=== PATIENT | female | born 1955 | race Caucasian/White ===

== ENCOUNTER 2016-08-09 11:36 | Inpatient (IN) | payer MEDICARE, MEDICAID ==
[~2016-08-09 11:36] MED LIST: ADVAIR INHALER; ALBUTEROL SULF8.5 G1 IH; ALENDRONATE SOD70 MG PO; ALLOPURINOL300 MG PO; AMITRIPTYLINE H25 M1 PO; ASPIRIN EC81 MG PO; CALCIUM + D T1 UDTAB PO; COLCRYS0.6 M1 PO; DEMADEX20 M1 PO; ENDOCET 7.5/3251 TAB PO; FLEXERIL10 MG PO; FUROSEMIDE40 MG PO; HYDRALAZINE HCL25 M1 PO; HYDROCODON-ACE1 EACH PO; IMURAN50 M1 PO; KLOR-CON 88 ME1 PO; LASIX40 MG PO; LOVENOX30 MG/0.3 SQ; MULTI VITAMIN1 EAC2 PO; MULTIVITAMIN1 TAB PO; OXYCODONE-APAP1 TAB PO; PEPCID40 M1 PO; PERCOCET 5-3251 EACH PO; POLYETHYLENE GL17 GM PO; PREDNISONE5 M1 PO; PROAIR HFA8.5 GM INH; PROMETHAZINE25 MG PO; TOPROL XL25 M1 PO; TRAMADOL HCL50 M1 PO; VITAMIN D50000 UNIT PO; ZYLOPRIM100 M1 PO
[2016-08-09] MEDS ORDERED: TYLENOL325 M2 PO (12:12)
[2016-08-09] MEDS ORDERED: VITAMIN C500 M3 PO (12:12)
[2016-08-09 12:20] LABS: HCT-HEMATOCRIT 26.5 % (34.0-49.0); HGB-HEMOGLOBIN 8.5 gm/dl (12.0-15.5); MCH (MEAN CORPUSCULAR HGB) 26.5 pg (28.0-32.0); MCHC MEAN CORPUSCULAR HGB CONC 32.1 % (32.0-36.0); MCV (MEAN CELL VOLUME) 82.6 fl (82.0-96.0); NEUTROPHIL-AUTOMATED 4.6 tho/cmm (1.6-8.0); RED BLOOD COUNT 3.21 mil/cmm (4.00-5.20); RED CELL DISTRIBUTION WIDTH 20.2 % (12.4-16.4); WHITE BLOOD COUNT 9.3 tho/cmm (4.0-10.0)
[2016-08-09 12:43] LABS: ALBUMIN 2.9 g/dl (3.5-5.0); ALKALINE PHOSPHATASE 75 U/L (33-138); ALT/SGPT <10 U/L (12-78); ANION GAP 15 mmol/L (0-20); AST/SGOT 16 U/L (10-40); BILIRUBIN,TOTAL 0.9 mg/dl (0-1.5); BLOOD UREA NITROGEN 36 mg/dl (6-24); CALCIUM 8.6 mg/dl (8.5-10.5); CARBON DIOXIDE-VENOUS 24 mmol/L (22-32); CHLORIDE 103 mmol/l (96-110); CREATININE 2.32 mg/dl (0.50-1.10); GLUCOSE 137 mg/dL (70-110); LIPASE 113 U/L (73-393); SODIUM 138 mmol/L (135-145); eGFR VALUE FOR BLACK 25 mL/Min
[2016-08-09 12:52] LABS: URINE BILIRUBIN NEGATIVE (NEG); URINE BLOOD NEGATIVE (NEG); URINE GLUCOSE (UA) NEGATIVE (NEG); URINE KETONE NEGATIVE (NEG); URINE LEUKOCYTE ESTERASE NEGATIVE (NEG); URINE NITRITE NEGATIVE (NEG); URINE PROTEIN NEGATIVE (NEG)
[2016-08-09 12:59] LABS: URINE APPEARANCE CLEAR; URINE COLOR YELLOW
[2016-08-09 13:46] LABS: BAND % 13 % (0-20); BAND ABSOLUTE COUNT 1.2 tho/cmm (0-2.0); BLAST ABSOLUTE COUNT 0.2 tho/cmm (0)
[2016-08-09 15:19] LABS: PLATELET COUNT 42 tho/cmm (150-450)
[2016-08-09 15:21] LABS: BLAST % 2 % (0)
[2016-08-09 20:06] LABS: INR 1.2 INR (0.9-1.1)
[2016-08-10 05:08] LABS: BASO % 0.4 % (0-2); EOS % 0.5 % (0-7); HCT-HEMATOCRIT 24.4 % (34.0-49.0); HGB-HEMOGLOBIN 7.9 gm/dl (12.0-15.5); IMMATURE GRANULOCYTES ABSOLUTE 0.64 tho/cmm (0-0.03); IMMATURE GRANULOCYTES PERCENT 7.6 % (0-0.3); LYMPH ABSOLUTE COUNT 1.4 tho/cmm (0.8-4.5); MCH (MEAN CORPUSCULAR HGB) 26.5 pg (28.0-32.0); MCHC MEAN CORPUSCULAR HGB CONC 32.4 % (32.0-36.0); MCV (MEAN CELL VOLUME) 81.9 fl (82.0-96.0); MONO % 32.9 % (0-12); MONOCYTE ABSOLUTE COUNT 2.8 tho/cmm (0.0-1.2); NEUTROPHIL ABSOLUTE COUNT 3.5 tho/cmm (1.6-8.0); NEUTROPHIL-AUTOMATED 3.5 tho/cmm (1.6-8.0); NEUTROPHILS % 41.6 % (40-80); RED BLOOD COUNT 2.98 mil/cmm (4.00-5.20); RED CELL DISTRIBUTION WIDTH 20.3 % (12.4-16.4); WHITE BLOOD COUNT 8.5 tho/cmm (4.0-10.0)
[2016-08-10 05:09] LABS: PLATELET COUNT 48 tho/cmm (150-450)
[2016-08-10 05:10] LABS: ANION GAP 11 mmol/L (0-20); BLOOD UREA NITROGEN 39 mg/dl (6-24); CALCIUM 8.3 mg/dl (8.5-10.5); CARBON DIOXIDE-VENOUS 27 mmol/L (22-32); CHLORIDE 101 mmol/l (96-110); GLUCOSE 88 mg/dL (70-110); POTASSIUM 3.9 mmol/L (3.7-5.1); SODIUM 135 mmol/L (135-145); eGFR VALUE FOR BLACK 26 mL/Min
--- NOTE | 2016-08-10 11:31 | NUR ---
VIRTUAL CARE NOTE: PT STATES DOING OK, NO NEEDS OR QUESTONS AT THIS TIME. CHART REVIEWED, ONCOLOGY TO SEE TODAY YET FOR CONSULT. WILL CON'T TO MONITOR.
[2016-08-11 05:32] LABS: ANION GAP 12 mmol/L (0-20); BLOOD UREA NITROGEN 38 mg/dl (6-24); CALCIUM 8.6 mg/dl (8.5-10.5); CARBON DIOXIDE-VENOUS 25 mmol/L (22-32); CHLORIDE 100 mmol/l (96-110); CREATININE 2.16 mg/dl (0.50-1.10); GLUCOSE 95 mg/dL (70-110); HCT-HEMATOCRIT 24.1 % (34.0-49.0); HGB-HEMOGLOBIN 7.9 gm/dl (12.0-15.5); MCH (MEAN CORPUSCULAR HGB) 26.4 pg (28.0-32.0); MCHC MEAN CORPUSCULAR HGB CONC 32.8 % (32.0-36.0); MCV (MEAN CELL VOLUME) 80.6 fl (82.0-96.0); NEUTROPHIL-AUTOMATED 4.7 tho/cmm (1.6-8.0); POTASSIUM 3.9 mmol/L (3.7-5.1); RED BLOOD COUNT 2.99 mil/cmm (4.00-5.20); RED CELL DISTRIBUTION WIDTH 20.3 % (12.4-16.4); SODIUM 133 mmol/L (135-145); WHITE BLOOD COUNT 9.6 tho/cmm (4.0-10.0); eGFR VALUE FOR BLACK 28 mL/Min
[2016-08-11 05:37] LABS: PLATELET COUNT 44 tho/cmm (150-450)
[2016-08-11 08:01] LABS: BAND % 10 % (0-20); EOSINOPHIL % 1 % (0-7)
[2016-08-11 08:02] LABS: BLAST % 2 % (0); BLAST ABSOLUTE COUNT 0.2 tho/cmm (0)
--- NOTE | 2016-08-11 17:17 | NUR ---
virtual care note: checked in on pt at this time. she is sitting up in bed. asks questions about her biopsy and would like her family to be able to call the nurses station to speak with staff about her plan of care. gave her the nurses' station phone number. pt is appropriate, converses appropriately. did also go over who each of her assigned physicians were and their role, to clear up any confusion. she was unsure of who all came to see her today. renal was consulted-she has a history of a renal transplant. will continue to monitor. electronic chart reviewed.
[2016-08-12 05:12] LABS: HGB-HEMOGLOBIN 7.3 gm/dl (12.0-15.5); MCH (MEAN CORPUSCULAR HGB) 26.1 pg (28.0-32.0); MCV (MEAN CELL VOLUME) 81.4 fl (82.0-96.0); NEUTROPHIL-AUTOMATED 2.7 tho/cmm (1.6-8.0); RED CELL DISTRIBUTION WIDTH 20.1 % (12.4-16.4); WHITE BLOOD COUNT 6.3 tho/cmm (4.0-10.0)
[2016-08-12 05:14] LABS: HCT-HEMATOCRIT 22.8 % (34.0-49.0); PLATELET COUNT 44 tho/cmm (150-450)
[2016-08-12 05:27] LABS: ANION GAP 13 mmol/L (0-20); BLOOD UREA NITROGEN 40 mg/dl (6-24); CALCIUM 8.5 mg/dl (8.5-10.5); CARBON DIOXIDE-VENOUS 26 mmol/L (22-32); CHLORIDE 104 mmol/l (96-110); GLUCOSE 93 mg/dL (70-110); POTASSIUM 4.1 mmol/L (3.7-5.1); SODIUM 139 mmol/L (135-145); eGFR VALUE FOR BLACK 32 mL/Min
[2016-08-12 08:07] LABS: BAND % 10 % (0-20); BAND ABSOLUTE COUNT 0.6 tho/cmm (0-2.0)
[2016-08-12 08:08] LABS: BLAST % 3 % (0); BLAST ABSOLUTE COUNT 0.2 tho/cmm (0)
[2016-08-12 08:09] LABS: WBC MORPHOLOGY TOXIC GRANULATION
--- NOTE | 2016-08-12 20:10 | NUR ---
VIRTUAL CARE NOTE: ASSESSMENT DEFFERRED. PT. SLEEPING.
[2016-08-13 07:52] LABS: ANION GAP 11 mmol/L (0-20); BLOOD UREA NITROGEN 32 mg/dl (6-24); CALCIUM 8.9 mg/dl (8.5-10.5); CARBON DIOXIDE-VENOUS 28 mmol/L (22-32); CHLORIDE 107 mmol/l (96-110); CREATININE 1.65 mg/dl (0.50-1.10); GLUCOSE 94 mg/dL (70-110); POTASSIUM 4.2 mmol/L (3.7-5.1); SODIUM 142 mmol/L (135-145); eGFR VALUE FOR BLACK 38 mL/Min
[2016-08-13 08:18] LABS: HGB-HEMOGLOBIN 7.3 gm/dl (12.0-15.5); MCH (MEAN CORPUSCULAR HGB) 26.1 pg (28.0-32.0); MCV (MEAN CELL VOLUME) 82.9 fl (82.0-96.0); NEUTROPHIL-AUTOMATED 4.5 tho/cmm (1.6-8.0); RED CELL DISTRIBUTION WIDTH 20.2 % (12.4-16.4); WHITE BLOOD COUNT 8.8 tho/cmm (4.0-10.0)
[2016-08-13 08:20] LABS: HCT-HEMATOCRIT 23.2 % (34.0-49.0); MCHC MEAN CORPUSCULAR HGB CONC 31.5 % (32.0-36.0); PLATELET COUNT 44 tho/cmm (150-450)
[2016-08-13 10:11] LABS: BAND % 17 % (0-20); BAND ABSOLUTE COUNT 1.5 tho/cmm (0-2.0); BLAST % 9 % (0); BLAST ABSOLUTE COUNT 0.8 tho/cmm (0)
[2016-08-13 10:13] LABS: BASOPHIL % 0 % (0-2)
--- NOTE | 2016-08-13 20:32 | NUR ---
VIRTUAL CARE NOTE: REVIEWED PLAN OF CARE WITH PT. DENIES ANY QUESTIONS. DENIES ANY QUESTIONS R/G MEDICATIONS OR S/E. ONLY COMPLAINT WAS THE BED. SAID THE HEATING PAD AND 'SLEEP' SETTING ON THE BED HAVE HELPED. PLAN HOME TOMORROW. ENCOURAGED FALL PRECAUTIONS AND TO NOTIFY STAFF FOR ANY NEEDS. PT V/U. WILL CONTINUE WITH CHART REVIEW.
--- NOTE | 2016-08-14 13:10 | NUR ---
VN DISCHARGE NOTE-REVIEWED DISMISSAL INSTRUCTIONS IN PERSON IN THE PATIENTS ROOM THE [facility] SYSTEM WAS OFFLINE. REVIEWED THE ACTIVITY,FOLLOWUP APPTS AND LABS,MEDICATIONS AND CHANGES IN MEDICATIONS. REVIEWED WITH PATIENT ON THE NEXT TIME SHE NEEDS TO TAKE MEDS. 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 PATIENT STATES IT WILL BE LATER THIS AFTERNOON BEFORE DAUGHTER CAN GET HER PICKED UP AFTER SHE GETS HER KIDS FROM SCHOOL. REMINDED NURSE ISAI THAT VS AND IV WILL NEED TO BE DONE PRIOR TO DISMISSAL BUT OTHERWISE PATIENT READY TO GO.
[2016-10-27] MEDS ORDERED: GARLIC1 EAC1 PO ×2 (11:53→11:58)
[2016-10-27] MEDS ORDERED: ZOFRAN ODT8 MG PO (11:54)
[2016-10-27] MEDS ORDERED: PROCHLORPERAZIN10 M1 PO (11:54)
[2016-10-27] MEDS ORDERED: FUROSEMIDE40 M2 PO (11:55)
[2016-10-27] MEDS ORDERED: COLCRYS0.6 M1 PO (11:55)
[2016-10-27] MEDS ORDERED: LOPERAMIDE2 M3 PO (11:55)
[2016-10-27] MEDS ORDERED: PERCOCET 5-3251 EACH PO (11:56)
[2016-10-27] MEDS ORDERED: PROAIR HFA8.5 GM INH (11:56)
[2016-10-27] MEDS ORDERED: VITAMIN C500 M3 PO (11:56)
[2016-10-27] MEDS ORDERED: THERA-M CAPLET1 EAC1 PO (11:56)
[2016-10-27] MEDS ORDERED: PEPCID40 M1 PO (11:57)
[2016-10-27] MEDS ORDERED: IMURAN50 M1 PO (11:57)
[2016-10-27] MEDS ORDERED: PREDNISONE5 M1 PO (11:57)
[2016-11-03] MEDS ORDERED: PIPERACIL-TAZO4.5 GM IV (16:14)
[2016-11-03] MEDS ORDERED: TRIAMCINOLONE A15 G2 (16:15)
[2016-11-03] MEDS ORDERED: MAGIC MOUTHWASH PO (16:17)
== END 2016-08-14 17:00 | DRG 815 ==
LOC: EDMED 11:36 → EMR2 14:48 → 5WD 16:00
PROVIDERS: Emergency Medicine; Hospitalist; Internal Medicine; ADMIT Hospitalist
PROC: 07DR3ZX Extraction of Iliac Bone Marrow, Percutaneous Approach, Diagnostic (ICD-10-PCS; principal; 2016-08-11)
DX: D73.5 Infarction of spleen (principal); N17.9 Acute kidney failure, unspecified; Z94.0 Kidney transplant status; I65.21 Occlusion and stenosis of right carotid artery; N18.4 Chronic kidney disease, stage 4 (severe); D64.9 Anemia, unspecified; I12.9 Hypertensive chronic kidney disease with stage 1 through stage 4 chronic kidney disease, or unspecified chronic kidney disease; Z86.718 Personal history of other venous thrombosis and embolism; Z79.01 Long term (current) use of anticoagulants; M10.9 Gout, unspecified; E78.5 Hyperlipidemia, unspecified; Z86.73 Personal history of transient ischemic attack (TIA), and cerebral infarction without residual deficits
CPT/HCPCS: C1830; G0364; J1650; J2250; J2270; J2405; J3010; J7030; J7500; J7512

== ENCOUNTER 2016-09-30 08:52 | Inpatient (IN) | payer MEDICARE, MEDICAID ==
[~2016-09-30 08:52] MED LIST changes: +TYLENOL325 M2 PO; +VITAMIN C500 M3 PO
[2016-09-30 10:17] LABS: HCT-HEMATOCRIT 26.7 % (34.0-49.0); HGB-HEMOGLOBIN 8.7 gm/dl (12.0-15.5); MCH (MEAN CORPUSCULAR HGB) 26.6 pg (28.0-32.0); MCHC MEAN CORPUSCULAR HGB CONC 32.6 % (32.0-36.0); MCV (MEAN CELL VOLUME) 81.7 fl (82.0-96.0); RED BLOOD COUNT 3.27 mil/cmm (4.00-5.20); RED CELL DISTRIBUTION WIDTH 21.1 % (12.4-16.4); WHITE BLOOD COUNT 22.6 tho/cmm (4.0-10.0)
[2016-09-30 10:20] LABS: PLATELET COUNT 27 tho/cmm (150-450)
[2016-09-30 10:33] LABS: ALB/GLOB RATIO 0.9 (0.8-2.0); ALBUMIN 2.8 g/dl (3.5-5.0); ALKALINE PHOSPHATASE 76 U/L (33-138); ALT/SGPT 15 U/L (12-78); ANION GAP 18 mmol/L (0-20); AST/SGOT 21 U/L (10-40); BILIRUBIN,TOTAL 1.3 mg/dl (0-1.5); BLOOD UREA NITROGEN 63 mg/dl (6-24); CALCIUM 8.4 mg/dl (8.5-10.5); CARBON DIOXIDE-VENOUS 21 mmol/L (22-32); CHLORIDE 101 mmol/l (96-110); CREATININE 3.88 mg/dl (0.50-1.10); GLUCOSE 96 mg/dL (70-110); POTASSIUM 4.7 mmol/L (3.7-5.1); SODIUM 135 mmol/L (135-145); eGFR VALUE FOR BLACK 14 mL/Min
[2016-09-30 13:49] LABS: BAND % 16 % (0-20); BAND ABSOLUTE COUNT 3.6 tho/cmm (0-2.0); BLAST ABSOLUTE COUNT 2.3 tho/cmm (0)
[2016-09-30 13:51] LABS: WBC MORPHOLOGY TOXIC GRANULATION
[2016-09-30 13:53] LABS: BLAST % 10 % (0)
[2016-10-01 06:19] LABS: INR 1.2 INR (0.9-1.1); PROTHROMBIN TIME 13.8 SECONDS (9.0-13.6)
[2016-10-01 06:21] LABS: HGB-HEMOGLOBIN 7.5 gm/dl (12.0-15.5); MCH (MEAN CORPUSCULAR HGB) 26.9 pg (28.0-32.0); MCV (MEAN CELL VOLUME) 80.6 fl (82.0-96.0); RED BLOOD COUNT 2.79 mil/cmm (4.00-5.20); RED CELL DISTRIBUTION WIDTH 20.5 % (12.4-16.4)
[2016-10-01 06:22] LABS: HCT-HEMATOCRIT 22.5 % (34.0-49.0); MCHC MEAN CORPUSCULAR HGB CONC 33.3 % (32.0-36.0); PLATELET COUNT 23 tho/cmm (150-450); WHITE BLOOD COUNT 10.1 tho/cmm (4.0-10.0)
[2016-10-01 06:28] LABS: ALBUMIN 2.4 g/dl (3.5-5.0); ANION GAP 15 mmol/L (0-20); BLOOD UREA NITROGEN 63 mg/dl (6-24); CALCIUM 7.8 mg/dl (8.5-10.5); CARBON DIOXIDE-VENOUS 23 mmol/L (22-32); CHLORIDE 103 mmol/l (96-110); GLUCOSE 77 mg/dL (70-110); PHOSPHOROUS 4.6 mg/dl (2.5-4.9); POTASSIUM 4.1 mmol/L (3.7-5.1); SODIUM 137 mmol/L (135-145); eGFR VALUE FOR BLACK 18 mL/Min
[2016-10-01 07:19] LABS: BAND % 6 % (0-20); BAND ABSOLUTE COUNT 0.6 tho/cmm (0-2.0)
[2016-10-01 07:26] LABS: BLAST % 8 % (0); BLAST ABSOLUTE COUNT 0.8 tho/cmm (0)
[2016-10-02 05:11] LABS: HGB-HEMOGLOBIN 7.5 gm/dl (12.0-15.5); MCH (MEAN CORPUSCULAR HGB) 26.7 pg (28.0-32.0); MCHC MEAN CORPUSCULAR HGB CONC 32.6 % (32.0-36.0); MCV (MEAN CELL VOLUME) 81.9 fl (82.0-96.0); RED BLOOD COUNT 2.81 mil/cmm (4.00-5.20); RED CELL DISTRIBUTION WIDTH 20.7 % (12.4-16.4); WHITE BLOOD COUNT 10.6 tho/cmm (4.0-10.0)
[2016-10-02 05:12] LABS: PLATELET COUNT 22 tho/cmm (150-450)
[2016-10-02 05:14] LABS: ALBUMIN 2.3 g/dl (3.5-5.0); ANION GAP 13 mmol/L (0-20); BLOOD UREA NITROGEN 54 mg/dl (6-24); CALCIUM 7.8 mg/dl (8.5-10.5); CARBON DIOXIDE-VENOUS 23 mmol/L (22-32); CHLORIDE 105 mmol/l (96-110); GLUCOSE 81 mg/dL (70-110); PHOSPHOROUS 3.6 mg/dl (2.5-4.9); SODIUM 137 mmol/L (135-145); eGFR VALUE FOR BLACK 27 mL/Min
[2016-10-02 05:17] LABS: CREATININE 2.22 mg/dl (0.50-1.10)
[2016-10-02 09:11] LABS: BAND % 6 % (0-20); BAND ABSOLUTE COUNT 0.6 tho/cmm (0-2.0); BLAST % 4 % (0); BLAST ABSOLUTE COUNT 0.4 tho/cmm (0)
[2016-10-03 04:46] LABS: HCT-HEMATOCRIT 24.1 % (34.0-49.0); HGB-HEMOGLOBIN 7.8 gm/dl (12.0-15.5); MCH (MEAN CORPUSCULAR HGB) 26.5 pg (28.0-32.0); MCHC MEAN CORPUSCULAR HGB CONC 32.4 % (32.0-36.0); RED BLOOD COUNT 2.94 mil/cmm (4.00-5.20); RED CELL DISTRIBUTION WIDTH 20.9 % (12.4-16.4); WHITE BLOOD COUNT 11.1 tho/cmm (4.0-10.0)
[2016-10-03 04:50] LABS: ANION GAP 12 mmol/L (0-20); BLOOD UREA NITROGEN 49 mg/dl (6-24); CARBON DIOXIDE-VENOUS 23 mmol/L (22-32); CHLORIDE 106 mmol/l (96-110); GLUCOSE 79 mg/dL (70-110); MAGNESIUM 1.8 mg/dl (1.8-2.6); PHOSPHOROUS 3.2 mg/dl (2.5-4.9); PLATELET COUNT 21 tho/cmm (150-450); SODIUM 137 mmol/L (135-145); eGFR VALUE FOR BLACK 34 mL/Min
[2016-10-03 06:57] LABS: BAND % 5 % (0-20); BAND ABSOLUTE COUNT 0.6 tho/cmm (0-2.0); BLAST % 2 % (0); BLAST ABSOLUTE COUNT 0.2 tho/cmm (0)
[2016-10-04 06:29] LABS: HGB-HEMOGLOBIN 6.6 gm/dl (12.0-15.5); MCH (MEAN CORPUSCULAR HGB) 26.6 pg (28.0-32.0); MCV (MEAN CELL VOLUME) 81.9 fl (82.0-96.0); NEUTROPHIL-AUTOMATED 1.8 tho/cmm (1.6-8.0); RED BLOOD COUNT 2.48 mil/cmm (4.00-5.20); RED CELL DISTRIBUTION WIDTH 20.6 % (12.4-16.4); WHITE BLOOD COUNT 6.7 tho/cmm (4.0-10.0)
[2016-10-04 06:30] LABS: ANION GAP 13 mmol/L (0-20); BLOOD UREA NITROGEN 46 mg/dl (6-24); CALCIUM 7.8 mg/dl (8.5-10.5); CARBON DIOXIDE-VENOUS 21 mmol/L (22-32); CHLORIDE 109 mmol/l (96-110); CREATININE 1.58 mg/dl (0.50-1.10); GLUCOSE 84 mg/dL (70-110); POTASSIUM 3.6 mmol/L (3.7-5.1); SODIUM 139 mmol/L (135-145); eGFR VALUE FOR BLACK 40 mL/Min
[2016-10-04 06:50] LABS: HCT-HEMATOCRIT 20.3 % (34.0-49.0); MCHC MEAN CORPUSCULAR HGB CONC 32.5 % (32.0-36.0)
[2016-10-04 06:53] LABS: PLATELET COUNT 14 tho/cmm (150-450)
[2016-10-04 11:02] LABS: BAND % 9 % (0-20); BAND ABSOLUTE COUNT 0.6 tho/cmm (0-2.0)
[2016-10-04 11:03] LABS: BLAST % 4 % (0); BLAST ABSOLUTE COUNT 0.3 tho/cmm (0)
[2016-10-04 11:04] LABS: WBC MORPHOLOGY DOHLE BODIES
[2016-10-05 06:30] LABS: MCV (MEAN CELL VOLUME) 82.8 fl (82.0-96.0); NEUTROPHIL-AUTOMATED 2.4 tho/cmm (1.6-8.0); RED BLOOD COUNT 3.37 mil/cmm (4.00-5.20); RED CELL DISTRIBUTION WIDTH 19.7 % (12.4-16.4); WHITE BLOOD COUNT 8.2 tho/cmm (4.0-10.0)
[2016-10-05 06:31] LABS: HCT-HEMATOCRIT 27.9 % (34.0-49.0); HGB-HEMOGLOBIN 9.1 gm/dl (12.0-15.5); MCHC MEAN CORPUSCULAR HGB CONC 32.6 % (32.0-36.0)
[2016-10-05 06:32] LABS: PLATELET COUNT 24 tho/cmm (150-450)
[2016-10-05 06:34] LABS: ANION GAP 15 mmol/L (0-20); BLOOD UREA NITROGEN 41 mg/dl (6-24); CALCIUM 8.5 mg/dl (8.5-10.5); CARBON DIOXIDE-VENOUS 23 mmol/L (22-32); CHLORIDE 111 mmol/l (96-110); CREATININE 1.54 mg/dl (0.50-1.10); GLUCOSE 76 mg/dL (70-110); SODIUM 144 mmol/L (135-145); eGFR VALUE FOR BLACK 41 mL/Min
[2016-10-05 06:37] LABS: POTASSIUM 4.5 mmol/L (3.7-5.1)
[2016-10-05 07:44] LABS: BAND % 14 % (0-20); BAND ABSOLUTE COUNT 1.1 tho/cmm (0-2.0); BLAST ABSOLUTE COUNT 0.6 tho/cmm (0)
[2016-10-05 07:45] LABS: BLAST % 7 % (0)
[2016-10-05 07:46] LABS: WBC MORPHOLOGY TOXIC GRANULATION
[2016-10-06 06:04] LABS: HGB-HEMOGLOBIN 7.5 gm/dl (12.0-15.5); MCH (MEAN CORPUSCULAR HGB) 26.9 pg (28.0-32.0); MCV (MEAN CELL VOLUME) 83.9 fl (82.0-96.0); NEUTROPHIL-AUTOMATED 1.2 tho/cmm (1.6-8.0); RED BLOOD COUNT 2.79 mil/cmm (4.00-5.20); RED CELL DISTRIBUTION WIDTH 20.1 % (12.4-16.4); WHITE BLOOD COUNT 5.3 tho/cmm (4.0-10.0)
[2016-10-06 06:06] LABS: HCT-HEMATOCRIT 23.4 % (34.0-49.0); MCHC MEAN CORPUSCULAR HGB CONC 32.1 % (32.0-36.0); PLATELET COUNT 18 tho/cmm (150-450)
[2016-10-06 06:08] LABS: ANION GAP 13 mmol/L (0-20); BLOOD UREA NITROGEN 39 mg/dl (6-24); CALCIUM 7.8 mg/dl (8.5-10.5); CARBON DIOXIDE-VENOUS 20 mmol/L (22-32); CHLORIDE 113 mmol/l (96-110); CREATININE 1.19 mg/dl (0.50-1.10); GLUCOSE 79 mg/dL (70-110); MAGNESIUM 1.7 mg/dl (1.8-2.6); PHOSPHOROUS 3.2 mg/dl (2.5-4.9); POTASSIUM 3.9 mmol/L (3.7-5.1); SODIUM 142 mmol/L (135-145); eGFR VALUE FOR BLACK 57 mL/Min
[2016-10-06 08:31] LABS: BAND % 15 % (0-20); BAND ABSOLUTE COUNT 0.8 tho/cmm (0-2.0); BLAST ABSOLUTE COUNT 0.7 tho/cmm (0)
[2016-10-06 08:38] LABS: BLAST % 13 % (0)
[2016-10-07 04:42] LABS: HGB-HEMOGLOBIN 7.5 gm/dl (12.0-15.5); MCH (MEAN CORPUSCULAR HGB) 26.9 pg (28.0-32.0); MCV (MEAN CELL VOLUME) 83.5 fl (82.0-96.0); NEUTROPHIL-AUTOMATED 1.1 tho/cmm (1.6-8.0); RED BLOOD COUNT 2.79 mil/cmm (4.00-5.20); RED CELL DISTRIBUTION WIDTH 20.2 % (12.4-16.4); WHITE BLOOD COUNT 4.5 tho/cmm (4.0-10.0)
[2016-10-07 04:43] LABS: HCT-HEMATOCRIT 23.3 % (34.0-49.0); MCHC MEAN CORPUSCULAR HGB CONC 32.2 % (32.0-36.0)
[2016-10-07 04:45] LABS: PLATELET COUNT 13 tho/cmm (150-450)
[2016-10-07 04:47] LABS: ALB/GLOB RATIO 0.7 (0.8-2.0); ALBUMIN 2.1 g/dl (3.5-5.0); ALKALINE PHOSPHATASE 67 U/L (33-138); ALT/SGPT 18 U/L (12-78); ANION GAP 12 mmol/L (0-20); AST/SGOT 25 U/L (10-40); BILIRUBIN,TOTAL 0.8 mg/dl (0-1.5); BLOOD UREA NITROGEN 41 mg/dl (6-24); CALCIUM 8.1 mg/dl (8.5-10.5); CARBON DIOXIDE-VENOUS 22 mmol/L (22-32); CHLORIDE 112 mmol/l (96-110); CREATININE 1.26 mg/dl (0.50-1.10); GLUCOSE 79 mg/dL (70-110); POTASSIUM 4.1 mmol/L (3.7-5.1); SODIUM 142 mmol/L (135-145); eGFR VALUE FOR BLACK 53 mL/Min
[2016-10-07 07:10] LABS: BAND % 9 % (0-20); BAND ABSOLUTE COUNT 0.4 tho/cmm (0-2.0); BLAST % 4 % (0); BLAST ABSOLUTE COUNT 0.2 tho/cmm (0)
[2016-10-08 05:59] LABS: ANION GAP 13 mmol/L (0-20); BLOOD UREA NITROGEN 38 mg/dl (6-24); CALCIUM 8.4 mg/dl (8.5-10.5); CARBON DIOXIDE-VENOUS 22 mmol/L (22-32); CHLORIDE 113 mmol/l (96-110); CREATININE 1.26 mg/dl (0.50-1.10); GLUCOSE 77 mg/dL (70-110); HGB-HEMOGLOBIN 7.4 gm/dl (12.0-15.5); MAGNESIUM 1.6 mg/dl (1.8-2.6); MCV (MEAN CELL VOLUME) 83.6 fl (82.0-96.0); NEUTROPHIL-AUTOMATED 0.9 tho/cmm (1.6-8.0); PHOSPHOROUS 3.9 mg/dl (2.5-4.9); POTASSIUM 4.3 mmol/L (3.7-5.1); RED BLOOD COUNT 2.74 mil/cmm (4.00-5.20); RED CELL DISTRIBUTION WIDTH 20.4 % (12.4-16.4); SODIUM 144 mmol/L (135-145); WHITE BLOOD COUNT 3.8 tho/cmm (4.0-10.0); eGFR VALUE FOR BLACK 53 mL/Min
[2016-10-08 06:04] LABS: HCT-HEMATOCRIT 22.9 % (34.0-49.0); MCHC MEAN CORPUSCULAR HGB CONC 32.3 % (32.0-36.0)
[2016-10-08 06:05] LABS: PLATELET COUNT 14 tho/cmm (150-450)
[2016-10-08 09:55] LABS: BAND % 9 % (0-20); BAND ABSOLUTE COUNT 0.3 tho/cmm (0-2.0); BLAST % 10 % (0); BLAST ABSOLUTE COUNT 0.4 tho/cmm (0)
[2016-10-09 04:42] LABS: ALB/GLOB RATIO 0.8 (0.8-2.0); ALBUMIN 2.4 g/dl (3.5-5.0); ALKALINE PHOSPHATASE 65 U/L (33-138); ALT/SGPT 22 U/L (12-78); ANION GAP 13 mmol/L (0-20); AST/SGOT 22 U/L (10-40); BILIRUBIN,TOTAL 0.7 mg/dl (0-1.5); BLOOD UREA NITROGEN 39 mg/dl (6-24); CALCIUM 8.4 mg/dl (8.5-10.5); CARBON DIOXIDE-VENOUS 23 mmol/L (22-32); CHLORIDE 110 mmol/l (96-110); CREATININE 1.35 mg/dl (0.50-1.10); GLUCOSE 84 mg/dL (70-110); POTASSIUM 4.5 mmol/L (3.7-5.1); SODIUM 141 mmol/L (135-145); eGFR VALUE FOR BLACK 49 mL/Min
[2016-10-09 04:53] LABS: HGB-HEMOGLOBIN 7.8 gm/dl (12.0-15.5); MCH (MEAN CORPUSCULAR HGB) 27.3 pg (28.0-32.0); MCHC MEAN CORPUSCULAR HGB CONC 32.5 % (32.0-36.0); MCV (MEAN CELL VOLUME) 83.9 fl (82.0-96.0); RED BLOOD COUNT 2.86 mil/cmm (4.00-5.20); RED CELL DISTRIBUTION WIDTH 19.8 % (12.4-16.4); WHITE BLOOD COUNT 3.5 tho/cmm (4.0-10.0)
[2016-10-09 04:58] LABS: PLATELET COUNT 9 tho/cmm (150-450)
[2016-10-09 08:56] LABS: BAND % 9 % (0-20); BAND ABSOLUTE COUNT 0.3 tho/cmm (0-2.0); BLAST % 8 % (0); BLAST ABSOLUTE COUNT 0.3 tho/cmm (0)
[2016-10-10 05:00] LABS: ANION GAP 11 mmol/L (0-20); BLOOD UREA NITROGEN 45 mg/dl (6-24); CALCIUM 8.6 mg/dl (8.5-10.5); CARBON DIOXIDE-VENOUS 24 mmol/L (22-32); CHLORIDE 108 mmol/l (96-110); CREATININE 1.41 mg/dl (0.50-1.10); GLUCOSE 84 mg/dL (70-110); POTASSIUM 4.3 mmol/L (3.7-5.1); SODIUM 139 mmol/L (135-145); eGFR VALUE FOR BLACK 46 mL/Min
[2016-10-10 05:10] LABS: HGB-HEMOGLOBIN 7.8 gm/dl (12.0-15.5); MCH (MEAN CORPUSCULAR HGB) 27.5 pg (28.0-32.0); MCV (MEAN CELL VOLUME) 83.8 fl (82.0-96.0); NEUTROPHIL-AUTOMATED 1.2 tho/cmm (1.6-8.0); RED BLOOD COUNT 2.84 mil/cmm (4.00-5.20); RED CELL DISTRIBUTION WIDTH 19.8 % (12.4-16.4); WHITE BLOOD COUNT 3.3 tho/cmm (4.0-10.0)
[2016-10-10 05:14] LABS: HCT-HEMATOCRIT 23.8 % (34.0-49.0); MCHC MEAN CORPUSCULAR HGB CONC 32.8 % (32.0-36.0)
[2016-10-10 05:15] LABS: PLATELET COUNT 12 tho/cmm (150-450)
[2016-10-10 07:12] LABS: BAND % 11 % (0-20); BAND ABSOLUTE COUNT 0.4 tho/cmm (0-2.0); BASOPHIL % 1 % (0-2); BLAST % 9 % (0); BLAST ABSOLUTE COUNT 0.3 tho/cmm (0)
[2016-10-10] MEDS ORDERED: LASIX40 M1 PO (18:50)
[2016-10-10] MEDS ORDERED: LOPERAMIDE2 M2 PO (18:51)
[2016-10-10] MEDS ORDERED: ZOFRAN ODT8 MG PO (18:52)
[2016-10-10] MEDS ORDERED: COMPAZINE10 MG PO (18:56)
[2016-10-27] MEDS ORDERED: GARLIC1 EAC1 PO ×2 (11:53→11:58)
[2016-10-27] MEDS ORDERED: ZOFRAN ODT8 MG PO (11:54)
[2016-10-27] MEDS ORDERED: PROCHLORPERAZIN10 M1 PO (11:54)
[2016-10-27] MEDS ORDERED: LOPERAMIDE2 M3 PO (11:55)
[2016-10-27] MEDS ORDERED: FUROSEMIDE40 M2 PO (11:55)
[2016-10-27] MEDS ORDERED: COLCRYS0.6 M1 PO (11:55)
[2016-10-27] MEDS ORDERED: THERA-M CAPLET1 EAC1 PO (11:56)
[2016-10-27] MEDS ORDERED: PROAIR HFA8.5 GM INH (11:56)
[2016-10-27] MEDS ORDERED: PERCOCET 5-3251 EACH PO (11:56)
[2016-10-27] MEDS ORDERED: VITAMIN C500 M3 PO (11:56)
[2016-10-27] MEDS ORDERED: PEPCID40 M1 PO (11:57)
[2016-10-27] MEDS ORDERED: PREDNISONE5 M1 PO (11:57)
[2016-10-27] MEDS ORDERED: IMURAN50 M1 PO (11:57)
[2016-11-03] MEDS ORDERED: PIPERACIL-TAZO4.5 GM IV (16:14)
[2016-11-03] MEDS ORDERED: TRIAMCINOLONE A15 G2 (16:15)
[2016-11-03] MEDS ORDERED: MAGIC MOUTHWASH PO (16:17)
== END 2016-10-10 20:14 | disposition home health service (06) | DRG 846 ==
LOC: 5WF 08:52
PROVIDERS: Internal Medicine Hematology & Oncology; Internal Medicine Nephrology; Nurse Practitioner; Physician Assistant Medical; ADMIT Internal Medicine Hematology & Oncology
PROC: 02HV33Z Insertion of Infusion Device into Superior Vena Cava, Percutaneous Approach (ICD-10-PCS; 2016-09-30)
PROC: 3E04305 Introduction of Other Antineoplastic into Central Vein, Percutaneous Approach (ICD-10-PCS; principal; 2016-10-01)
PROC: 30243N1 Transfusion of Nonautologous Red Blood Cells into Central Vein, Percutaneous Approach (ICD-10-PCS; 2016-10-04)
DX: Z51.11 Encounter for antineoplastic chemotherapy (principal); E88.3 Tumor lysis syndrome; D61.810 Antineoplastic chemotherapy induced pancytopenia; T86.19 Other complication of kidney transplant; C92.Z0 Other myeloid leukemia not having achieved remission; I95.9 Hypotension, unspecified; L03.115 Cellulitis of right lower limb; E44.1 Mild protein-calorie malnutrition; N17.9 Acute kidney failure, unspecified; L03.116 Cellulitis of left lower limb; Z94.0 Kidney transplant status; D69.6 Thrombocytopenia, unspecified; R19.7 Diarrhea, unspecified; E79.0 Hyperuricemia without signs of inflammatory arthritis and tophaceous disease; R60.0 Localized edema; S62.649A Nondisplaced fracture of proximal phalanx of unspecified finger, initial encounter for closed fracture; I73.9 Peripheral vascular disease, unspecified; N28.9 Disorder of kidney and ureter, unspecified; E78.5 Hyperlipidemia, unspecified; Z86.73 Personal history of transient ischemic attack (TIA), and cerebral infarction without residual deficits; J45.909 Unspecified asthma, uncomplicated; Z79.82 Long term (current) use of aspirin; Z68.38 Body mass index [BMI] 38.0-38.9, adult; E86.0 Dehydration; I12.9 Hypertensive chronic kidney disease with stage 1 through stage 4 chronic kidney disease, or unspecified chronic kidney disease; N18.3 Chronic kidney disease, stage 3 (moderate); T45.1X5A Adverse effect of antineoplastic and immunosuppressive drugs, initial encounter
CPT/HCPCS: C1751; J0894; J2783; J7030; J7050; J7500; J7512; P9033; P9037; P9040